=== PATIENT | female | born 1950 | race Caucasian/White ===

== ENCOUNTER 2016-09-04 18:54 | Observation (INO) | payer OTHER, BC ==
--- NOTE | 2016-09-04 19:10 | CPEKG ---
Heart Rate: 91 RR Interval: 659 P-R Interval: 164 QRSD Interval: 94 QT Interval: 372 QTC Interval: 458 P Sherwood: -3 QRS Sherwood: 2 T Wave Sherwood: 18 EKG Severity - NORMAL ECG - EKG Impression: SINUS RHYTHM Electronically Signed By: Salvador Stern 04-Sep-2016 19:27:01
[2016-09-04] MEDS ORDERED: ASPIRIN 81 MG CHEWABLE TAB PO ONE (19:17)
[2016-09-04 19:24] LABS: % IMMATURE GRANULYOCYTES 0.4 % (0.0-1.1); ABSOLUTE IMMATURE GRANULOCYTES 0.03 10^3/uL (0.00-0.10); ADD DIFF? NO; ADD MORPH? NO; ADD SCAN? NO; ATYPICAL LYMPHOCYTE FLAG 20 (0-99); FRAGMENT RBC FLAG 0 (0-99); HEMATOCRIT 41.4 % (38.0-47.0); HEMOGLOBIN 13.8 g/dL (12.6-16.3); LEFT SHIFT FLG 0 (0-99); LIPEMIA HEMOLYSIS FLAG 80 (0-99); MEAN CELL HEMOGLOBIN 30.7 pg (27.9-34.1); MEAN CELL HEMOGLOBIN CONCENTR. 33.3 g/dL (32.4-36.7); MEAN CELL VOLUME 92.2 fL (81.5-99.8); MEAN PLATELET VOLUME 9.2 fL (8.7-11.7); PLATELET CLUMPS FLAG 10 (0-99); PLATELET COUNT 202 10^3/uL (150-400); RED BLOOD CELL COUNT 4.49 10^6/uL (4.18-5.33); RED CELL DISTRIBUTION WIDTH 14.1 % (11.5-15.2)
--- NOTE | 2016-09-04 19:26 | EDPHY ---
H & P Time Seen by Provider: 09/04/16 19:02 HPI/ROS: CHIEF COMPLAINT: Chest pain HISTORY OF PRESENT ILLNESS: This 66-year-old woman flew out here from the [facility] to visit her daughter and family. Today at home around 6:30 p.m. she had sudden onset of chest pain associated with diaphoresis and dizziness and feeling lightheaded and her daughter who is a physician aquatics assistant department head noted her heart rate to be about 170 for 10 minutes. Her heart rate finally went back to normal but she continued to have central chest pain which finally went away after about 45 minutes. Did not radiate. Symptoms were moderate. REVIEW OF SYSTEMS: Eye: no change in vision ENT: no sore throat Cardiac: HPI Pulmonary: no cough or SOB Abdomen: no vomiting, diarrhea, abdominal pain Musculoskeletal: no back pain or leg swelling, chronic has right knee pain in a brace unchanged Skin: no rash Neuro: no headache Constitutional: no fever : no urinary symptoms A comprehensive 10 point review of systems is otherwise negative aside from elements mentioned in the history of present illness. PAST MEDICAL HISTORY: Osteoarthritis in the right knee, no diabetes or hypertension, normal cholesterol. Social history: Visiting from the [facility], nonsmoker General Appearance: Alert and conversant, cooperative. Eyes: No scleral icterus. ENT, Mouth: Normal mucous membranes. Respiratory: Normal respiratory effort, breath sounds equal, lungs are clear to auscultation. Cardiovascular: Regular rate and rhythm. Gastrointestinal: Abdomen is soft and non tender. Neurological: Alert and oriented x3. Normally conversant. Face symmetric, normal movement and sensation in all extremities. Skin: Warm and dry, no rashes. Musculoskeletal: Right leg in a brace but no calf tenderness either side Psychiatric: Not agitated. Emergency Department course/MDM: Oral aspirin, property assessment monitor, chest x-ray and troponin and D-dimer. 194: D-dimer negative, pretest probability for pulmonary embolism is low. 2015: Results discussed, no chest pain now, received oral aspirin, plan to admit for risk stratification and troponins. Smoking Status: Never smoked Constitutional: Initial Vital Signs Temperature (C) 36.7 C 09/04/16 18:58 Heart Rate 94 09/04/16 18:58 Respiratory Rate 18 09/04/16 18:58 Blood Pressure 172/102 H 09/04/16 18:58 O2 Sat (%) 96 09/04/16 18:58 O2 Delivery Mode Room Air Allergies/Adverse Reactions: No Known Allergies Allergy (Unverified 09/04/16 18:57) Home Medications: Medication Instructions Recorded Acebutolol HCl 09/04/16 Flexeril 09/04/16 Fosamax 09/04/16 Synthroid 09/04/16 Medical Decision Making - Diagnostics EKG Interpretation: 12-lead EKG interpreted by me; official reading is in trace master. My interpretation is sinus rhythm rate 91 no ischemic changes. Imaging Results: Imaging Impressions Chest X-Ray 09/04/16 19:17 Impression: No acute pulmonary disease. Imaging: I viewed and interpreted images myself Differential Diagnosis: Differential diagnosis considered for chest pain including but not limited to myocardial ischemia, aortic dissection, pericarditis, pulmonary embolus, chest wall pain, pleural inflammation and pulmonary infectious causes. Consult/Admit Bed Type: [facility] 2024 - Data Points Laboratory Results: Laboratory Results 09/04/16 19:15 09/04/16 19:15 09/04/16 09/04/16 09/04/16 19:15 19:15 19:15 WBC 7.50 10^3/uL 10^3/uL (3.80-9.50) RBC 4.49 10^6/uL 10^6/uL (4.18-5.33) Hgb 13.8 g/dL g/dL (12.6-16.3) Hct 41.4 % % (38.0-47.0) MCV 92.2 fL fL (81.5-99.8) MCH 30.7 pg pg (27.9-34.1) MCHC 33.3 g/dL g/dL (32.4-36.7) RDW 14.1 % % (11.5-15.2) Plt Count 202 10^3/uL 10^3/uL (150-400) MPV 9.2 fL fL (8.7-11.7) Neut % (Auto) 50.4 % % (39.3-74.2) Lymph % (Auto) 37.6 % % (15.0-45.0) [place] % (Auto) 9.7 % % (4.5-13.0) Eos % (Auto) 1.1 % % (0.6-7.6) Baso % (Auto) 0.8 % % (0.3-1.7) Nucleat RBC Rel Count 0.0 % % (0.0-0.2) Absolute Neuts (auto) 3.78 10^3/uL 10^3/uL (1.70-6.50) Absolute Lymphs (auto) 2.82 10^3/uL 10^3/uL (1.00-3.00) Absolute Monos (auto) 0.73 10^3/uL 10^3/uL (0.30-0.80) Absolute Eos (auto) 0.08 10^3/uL 10^3/uL (0.03-0.40) Absolute Basos (auto) 0.06 10^3/uL 10^3/uL (0.02-0.10) Absolute Nucleated RBC 0.00 10^3/uL 10^3/uL (0-0.01) Immature Gran % 0.4 % % (0.0-1.1) Immature Gran # 0.03 10^3/uL 10^3/uL (0.00-0.10) D-Dimer 0.28 ug/mLFEU ug/mLFEU (0.00-0.50) Sodium 141 mEq/L mEq/L (134-144) Potassium 4.0 mEq/L mEq/L (3.5-5.2) Chloride 105 mEq/L mEq/L (97-110) Carbon Dioxide 28 mEq/l mEq/l (22-31) Anion Gap 8 mEq/L mEq/L (8-16) BUN 16 mg/dL mg/dL (7-23) Creatinine 0.8 mg/dL mg/dL (0.6-1.0) Estimated GFR > 60 Glucose 103 mg/dL H mg/dL (70-100) Calcium 8.9 mg/dL mg/dL (8.5-10.4) Troponin I < 0.012 ng/mL ng/mL (0-0.034) Medications Given: Discontinued Medications Aspirin (Aspirin) 324 mg PO EDNOW ONE Stop: 09/04/16 19:18 Last Admin: 09/04/16 19:23 Dose: 324 mg Departure - Departure Disposition: [facility] Inpatient Acute Clinical Impression: Chest pain Qualifiers: Chest pain type: unspecified Qualified Code(s): R07.9 - Chest pain, unspecified Condition: Good Referrals: LUTHER NAJERA [Other] - As per Instructions
[2016-09-04 19:39] LABS: ANION GAP 8 mEq/L (8-16); CARBON DIOXIDE 28 mEq/l (22-31); CHLORIDE 105 mEq/L (97-110); CREATININE 0.8 mg/dL (0.6-1.0); GLOMERULAR FILTRATION RATE > 60; GLUCOSE 103 mg/dL (70-100); SODIUM 141 mEq/L (134-144)
[2016-09-04 19:51] LABS: TROPONIN I < 0.012 ng/mL (0-0.034)
[2016-09-04 19:57] LABS: CALCIUM 8.9 mg/dL (8.5-10.4)
[2016-09-04] MEDS ORDERED: ACETAMINOPHEN 325 MG TAB PO PRN (20:44)
[2016-09-04] MEDS ORDERED: ONDANSETRON 4 MG/2 ML VIAL IVP PRN (20:44)
[2016-09-04] MEDS ORDERED: ONDANSETRON DISINTEGRATING 4 MG TAB PO PRN (20:44)
--- NOTE | 2016-09-04 21:46 | PDGENHP ---
History and Physical - Chief Complaint Acute chest pain - History of Present Illness 66-year-old female presents with acute chest pain located in the substernal area with associated diaphoresis, dizziness and onset of 6:30 p.m. on the day of this presentation, occurring at rest. Duration was approximately 45-50 minutes. She reports that prior to her onset of symptoms, she had been physically exerting herself as she and her had been rushing from the airport to their daughter's house and then began engaging with the grandchildren. However while she was exerting herself from the airport to her shuttle, she did not experience these symptoms. She does endorse that 2 days prior to this presentation, she did feel which she characterized as "twinges" located in her left chest which intermittently occurred and were self resolved. Her pain on the day of this presentation was also self limited although she did receive full-dose aspirin in our emergency department. She otherwise reports she has been feeling well although she has been having progressive pain in her left hip limiting her overall physical exercise and exercise tolerance. She has attempted to do stretching exercises and does report that she had been doing some significant stretches during the days preceding this presentation. On the day of arrival, the patient had flown from [place] to [place] to visit her daughter and her grandchildren for the next 3 weeks. History Information - Allergies/Home Medication List Allergies/Adverse Reactions: No Known Allergies Allergy (Unverified 09/04/16 18:57) I have personally reviewed and updated: family history, medical history, social history, surgical history - Past Medical History Additional medical history: Symptomatic PVCs. Osteoarthritis - Surgical History Reports: no pertinent surgical hx - Family History Additional family history: mother with possible IN in her 70s - Social History Smoking Status: Never smoked Alcohol Use: Occasionally Drug Use: None Additional social history: normally independent in her ADLs Review of Systems ROS: 10pt was reviewed & negative except for what was stated in HPI & below Constitutional: Reports: diaphoresis Cardiac: Reports: chest pain, lightheadedness Physical Exam Temp Pulse Resp BP Pulse Ox 36.7 C 82 16 152/98 H 93 09/04/16 18:58 09/04/16 20:48 09/04/16 20:48 09/04/16 20:48 09/04/16 20:48 Constitutional: no apparent distress, appears nourished, not in pain Eyes: PERRL, anicteric sclera, EOMI Ears, Nose, Mouth, Throat: moist mucous membranes, hearing normal, ears appear normal, no oral mucosal ulcers Cardiovascular: regular rate and rhythym, no murmur, rub, or gallop, No edema Respiratory: no respiratory distress, no rales or rhonchi, clear to auscultation Gastrointestinal: normoactive bowel sounds, soft, non-tender abdomen, no palpable masses Genitourinary: no bladder fullness, no bladder tenderness Skin: other ( no vesicular lesions or rash over the left chest) Musculoskeletal: other ( tenderness to palpation in the left pectoralis muscle but she does have some mild tenderness and fibrous breast tissue on the left, also some tenderness in the sub a.c. on the left, full range of motion left shoulder without pain) Neurologic: AAOx3, No weakness Psychiatric: not encephalopathic, thought process linear, anxious, No agitated Lab Data & Imaging Review 09/04/16 19:15 09/04/16 19:15 WBC 7.50 10^3/uL (3.80-9.50) 09/04/16 19:15 RBC 4.49 10^6/uL (4.18-5.33) 09/04/16 19:15 Hgb 13.8 g/dL (12.6-16.3) 09/04/16 19:15 Hct 41.4 % (38.0-47.0) 09/04/16 19:15 MCV 92.2 fL (81.5-99.8) 09/04/16 19:15 MCH 30.7 pg (27.9-34.1) 09/04/16 19:15 MCHC 33.3 g/dL (32.4-36.7) 09/04/16 19:15 RDW 14.1 % (11.5-15.2) 09/04/16 19:15 Plt Count 202 10^3/uL (150-400) 09/04/16 19:15 MPV 9.2 fL (8.7-11.7) 09/04/16 19:15 Neut % (Auto) 50.4 % (39.3-74.2) 09/04/16 19:15 Lymph % (Auto) 37.6 % (15.0-45.0) 09/04/16 19:15 [place] % (Auto) 9.7 % (4.5-13.0) 09/04/16 19:15 Eos % (Auto) 1.1 % (0.6-7.6) 09/04/16 19:15 Baso % (Auto) 0.8 % (0.3-1.7) 09/04/16 19:15 Nucleat RBC Rel Count 0.0 % (0.0-0.2) 09/04/16 19:15 Absolute Neuts (auto) 3.78 10^3/uL (1.70-6.50) 09/04/16 19:15 Absolute Lymphs (auto) 2.82 10^3/uL (1.00-3.00) 09/04/16 19:15 Absolute Monos (auto) 0.73 10^3/uL (0.30-0.80) 09/04/16 19:15 Absolute Eos (auto) 0.08 10^3/uL (0.03-0.40) 09/04/16 19:15 Absolute Basos (auto) 0.06 10^3/uL (0.02-0.10) 09/04/16 19:15 Absolute Nucleated RBC 0.00 10^3/uL (0-0.01) 09/04/16 19:15 Immature Gran % 0.4 % (0.0-1.1) 09/04/16 19:15 Immature Gran # 0.03 10^3/uL (0.00-0.10) 09/04/16 19:15 D-Dimer 0.28 ug/mLFEU (0.00-0.50) 09/04/16 19:15 Sodium 141 mEq/L (134-144) 09/04/16 19:15 Potassium 4.0 mEq/L (3.5-5.2) 09/04/16 19:15 Chloride 105 mEq/L (97-110) 09/04/16 19:15 Carbon Dioxide 28 mEq/l (22-31) 09/04/16 19:15 Anion Gap 8 mEq/L (8-16) 09/04/16 19:15 BUN 16 mg/dL (7-23) 09/04/16 19:15 Creatinine 0.8 mg/dL (0.6-1.0) 09/04/16 19:15 Estimated GFR > 60 09/04/16 19:15 Glucose 103 mg/dL (70-100) H 09/04/16 19:15 Calcium 8.9 mg/dL (8.5-10.4) 09/04/16 19:15 Troponin I < 0.012 ng/mL (0-0.034) 09/04/16 19:15 Visualized and Interpreted Chest x-ray results: Yes Chest X-Ray results: no infiltrate Visualized and Interpreted EKG results: Yes EKG Interpretation: Positive for: other ( normal sinus rhythm) Assessment & Plan Assessment: 66-year-old female presenting with acute chest pain the setting of known chronic PVCs Plan: 1. Chest pain. Acute, new problem this provider, further workup indicated. Potential etiologies include obstructive coronary disease versus acute coronary syndrome versus tachyarrhythmia versus atypical causes. - I suspect the most likely causes a tachyarrhythmia given her description of the symptoms as well as her known history of PVCs and her daughters report that she was found to be tachycardic on exam during the episode, with an estimated heart rate around 170 - will monitor on telemetry overnight - will get Lexiscan stress test in a.m. given that she cannot run on a treadmill - will cycle cardiac enzymes - will empirically treat for possible obstructive coronary disease and acute coronary syndrome with metoprolol and full-dose aspirin - get hemoglobin A1c and lipid panel - get TSH to rule out under or over suppression - empirically give PPI for possible GERD - if patient is found to not have any cardiac or pulmonary causes of chest pain , would recommend that she follow up with [facility] this week for implantation of a loop recorder, Dr. lozada contact information has been provided in chart 2. Hypothyroidism. Check TSH as outlined above, continue Synthroid Diet. Regular, NPO in a.m. Prophylaxis. Moderate risk patient, Lovenox 40 Code. Full Disposition. Anticipated discharge is 09/05/2016, pending further workup and treatment as outlined above. I have discussed patient's presentation with Dr. Salvador Stern, we both agree the patient should be monitored in the PCU given her high likelihood of recurrent tachyarrhythmia which would require further rhythm evaluation and monitoring.
[2016-09-04] MEDS: METOPROLOL TARTRATE 25 MG TAB PO SCH (22:18)
[2016-09-04] MEDS ORDERED: CYCLOBENZAPRINE 10 MG TAB PO PRN (22:35)
[2016-09-04] MEDS ORDERED: METAXALONE 800 MG TAB PO PRN (22:35)
[2016-09-04] MEDS ORDERED: ACEBUTOLOL HCL 200 MG CAP PO SCH (23:15)
[2016-09-05 05:07] LABS: % IMMATURE GRANULYOCYTES 0.3 % (0.0-1.1); ABSOLUTE IMMATURE GRANULOCYTES 0.02 10^3/uL (0.00-0.10); ADD DIFF? NO; ADD MORPH? NO; ADD SCAN? NO; ATYPICAL LYMPHOCYTE FLAG 10 (0-99); FRAGMENT RBC FLAG 0 (0-99); HEMATOCRIT 40.2 % (38.0-47.0); HEMOGLOBIN 13.4 g/dL (12.6-16.3); LEFT SHIFT FLG 0 (0-99); LIPEMIA HEMOLYSIS FLAG 80 (0-99); MEAN CELL HEMOGLOBIN 30.7 pg (27.9-34.1); MEAN CELL HEMOGLOBIN CONCENTR. 33.3 g/dL (32.4-36.7); MEAN CELL VOLUME 92.2 fL (81.5-99.8); MEAN PLATELET VOLUME 9.5 fL (8.7-11.7); PLATELET CLUMPS FLAG 0 (0-99); PLATELET COUNT 190 10^3/uL (150-400); RED BLOOD CELL COUNT 4.36 10^6/uL (4.18-5.33)
[2016-09-05 05:20] LABS: ALANINE AMINOTRANSFERASE 38 IU/L (9-52); ALBUMIN 3.6 g/dL (3.5-5.0); ALKALINE PHOSPHATASE 47 IU/L (38-126); ANION GAP 6 mEq/L (8-16); ASPARTATE AMINOTRANSFERASE 29 IU/L (14-46); BILIRUBIN,TOTAL 0.7 mg/dL (0.1-1.4); CALCIUM 8.4 mg/dL (8.5-10.4); CARBON DIOXIDE 26 mEq/l (22-31); CHLORIDE 108 mEq/L (97-110); CHOLESTEROL 190 mg/dL (140-220); CHOLESTEROL/HDL RATIO 3.52 RATIO (1.00-4.44); CREATININE 0.6 mg/dL (0.6-1.0); GLOMERULAR FILTRATION RATE > 60; GLUCOSE 82 mg/dL (70-100); HIGH DENSITY LIPOPROTEIN 54 mg/dL (40-85); LOW DENSITY LIPOPROTEIN 119 mg/dL (80-100); MAGNESIUM 2.1 mg/dL (1.6-2.3); NON-HIGH DENSITY LIPOPROTEIN 136 mg/dL (90-129); POTASSIUM 4.1 mEq/L (3.5-5.2); SODIUM 140 mEq/L (134-144); TOTAL PROTEIN 6.1 g/dL (6.3-8.2); TRIGLYCERIDE 86 mg/dL (35-135); VERY LOW DENSITY LIPOPROTEINS 17 mg/dL (8-25)
[2016-09-05 05:30] LABS: TROPONIN I 0.022 ng/mL (0-0.034)
[2016-09-05] MEDS ORDERED: LEVOTHYROXINE 88 MCG TAB PO SCH (06:00)
[2016-09-05 07:29] VITALS: RESP 20; TEMP 98; O2SAT 94
[2016-09-05] MEDS ORDERED: ENOXAPARIN 40 MG/0.4 ML SYR SC SCH (09:00)
[2016-09-05] MEDS ORDERED: Herbals/Supplements -Info Only PO SCH (09:00)
[2016-09-05] MEDS ORDERED: PANTOPRAZOLE SODIUM 40 MG TAB PO SCH (09:00)
[2016-09-05] MEDS ORDERED: OMEGA-3 FATTY ACIDS 1,000 MG CAP PO SCH (09:00)
[2016-09-05] MEDS ORDERED: VIT E ACET PO SCH (09:00)
[2016-09-05] MEDS ORDERED: UBIDECARENONE PO SCH (09:00)
[2016-09-05] MEDS ORDERED: ASPIRIN EC 325 MG TAB PO SCH (09:00)
[2016-09-05] MEDS ORDERED: MULTIVITAMINS 1 EACH TAB PO SCH (09:00)
[2016-09-05] MEDS ORDERED: REGADENOSON 0.4 MG/5 ML SYR IVP ONE (11:02)
--- NOTE | 2016-09-05 11:23 | PDCARCONS ---
Cardiology Consult Reason for Consult: Chest pains with tachycardia Chief Complaint: Chest pain Requesting Physician: Hospitalist History of Present Illness: Patient is a 66 y/o female with unremarkable past medical/cardiovascular history (no CAD, HTN, HLP, or DM), who presented to [facility] ER after noting an episode of chest discomfort. Discomfort was a pain, and localized to the substernal region. Duration of symptoms was about 45 - 50 minutes. The severity of the discomfort was 10/10, but by the time the patient was seen in the ER, the pains had dropped. No radiation of the discomfort into the shoulder , neck, or jaw. Nausea and malaise was noted as well as diaphoresis. The patient also noted accelerated heart rates (~170 bpm). Mild dizziness was also noted. Two days prior to this event, the patient had studdering chest pains while driving the car (on an off for the day). No "fast heart rates" were noted that day. No PND or orthopnea has been noted. No fevers, chills, or emesis. No symptoms similar (tachycardia) have been noted for some time, but about three years ago, something similar to this was noted, and the patient had a cardiac work up (patient had "stress echo" and holter monitor). Patient's diary of studies without "stress testing" written, simply echo and holter. Patient's daughter is a PA for a family practice group in [place]. There had been talk about a zig zag stitcher rhythm assessment in the past, but given a lack of symptoms, these tests were not further pursued after the last bout three years ago (sounds like the patient might have had a discussion about a LINQ implant). The remainder of the 12 point review of symptoms (outside of that which was mentioned above) was negative History Information - Allergies/Home Medication List Allergies/Adverse Reactions: No Known Allergies Allergy (Unverified 09/04/16 18:57) Home Medications: Acebutolol HCl [Sectral 200 mg (*)] 200 mg PO HS 09/04/16 [Last Taken 09/03/16] Alendronate Sodium [Fosamax 70 MG (*)] 70 mg PO MO@0700 09/04/16 [Last Taken 12/09] Cyclobenzaprine [Flexeril 10 MG (*)] 10 mg PO BID PRN 09/04/16 [Last Taken Unknown] Herbals/Supplements -Info Only 1 ea PO DAILY 09/04/16 [Last Taken Unknown] Levothyroxine [Synthroid 88 mcg (*)] 44 mcg PO SUSA@0600 09/04/16 [Last Taken ] Levothyroxine [Synthroid 88 mcg (*)] 88 mcg PO MOTUWETHFR@0600 09/04/16 [Last Taken 09/03/16] Metaxalone [Skelaxin 800 mg (*)] 800 mg PO TID PRN 09/04/16 [Last Taken 09/04/16 ] Multivitamins [Multivitamin (*)] 1 each PO DAILY 09/04/16 [Last Taken 09/04/16] [place]-3 Fatty Acids/Fish Oil [[place] 3 1,000 mg Softgel] 1 each PO DAILY [Last Taken 09/04/16] Ubidecarenone/Vit E Acet [Co Q-10 100 mg Softgel] 1 each PO DAILY 09/04/16 [ Last Taken 09/04/16] I have personally reviewed and updated: family history, medical history, social history, surgical history - Past Medical History no pertinent PMH, arthritis - Surgical History Reports: no pertinent surgical hx - Family History Positive for: non-pertinent - Social History Smoking Status: Never smoked Alcohol Use: Occasionally Drug Use: None Cardiac History - Cardiac History Cardiac Risk Factors: age > 65 Timing/Duration: Minutes Severity: severe Severity Scale: 10 Location: substernal Activities at Onset: none Modifying Factors: improves with: rest Associated Symptoms: chest pain, diaphoresis, nausea/vomiting MAIA Risk Evaluation age greater or equal to 65: yes greater or equal to 3 CAD risk factors: no known CAD(stenosis greater or eqaul to 50%): no ASA use in past 7 days: no severe angina(greater or equal to 2 episodes in 24hrs): no EKG ST changes greater or equal to 0.5mm: no positive cardiac marker: no Total Score: 1 MAIA Score: 4.7% risk Physical Exam Temp Pulse Resp BP Pulse Ox 36.7 C 93 20 130/91 H 94 09/05/16 07:27 09/05/16 07:27 09/05/16 07:27 09/05/16 07:27 09/05/16 07:27 Constitutional: no apparent distress, appears nourished Eyes: PERRL Ears, Nose, Mouth, Throat: moist mucous membranes, hearing normal Cardiovascular: regular rate and rhythym, no murmur, rub, or gallop, pulses symmetric bilaterally, No JVD Peripheral Pulses: 2+: dorsalis-pedis (R), dorsalis-pedis (L) Respiratory: no respiratory distress, no rales or rhonchi, clear to auscultation Gastrointestinal: normoactive bowel sounds Skin: warm, normal color Musculoskeletal: full muscle strength, no muscle tenderness, normal joint ROM Neurologic: AAOx3, CN II-XII Intact Psychiatric: interacting appropriately, not anxious, not encephalopathic Lab and Imaging 09/05/16 04:18 09/05/16 04:18 WBC 6.40 10^3/uL (3.80-9.50) 09/05/16 04:18 RBC 4.36 10^6/uL (4.18-5.33) 09/05/16 04:18 Hgb 13.4 g/dL (12.6-16.3) 09/05/16 04:18 Hct 40.2 % (38.0-47.0) 09/05/16 04:18 MCV 92.2 fL (81.5-99.8) 09/05/16 04:18 MCH 30.7 pg (27.9-34.1) 09/05/16 04:18 MCHC 33.3 g/dL (32.4-36.7) 09/05/16 04:18 RDW 14.0 % (11.5-15.2) 09/05/16 04:18 Plt Count 190 10^3/uL (150-400) 09/05/16 04:18 MPV 9.5 fL (8.7-11.7) 09/05/16 04:18 Neut % (Auto) 44.9 % (39.3-74.2) 09/05/16 04:18 Lymph % (Auto) 42.7 % (15.0-45.0) 09/05/16 04:18 [place] % (Auto) 9.8 % (4.5-13.0) 09/05/16 04:18 Eos % (Auto) 1.4 % (0.6-7.6) 09/05/16 04:18 Baso % (Auto) 0.9 % (0.3-1.7) 09/05/16 04:18 Nucleat RBC Rel Count 0.0 % (0.0-0.2) 09/05/16 04:18 Absolute Neuts (auto) 2.87 10^3/uL (1.70-6.50) 09/05/16 04:18 Absolute Lymphs (auto) 2.73 10^3/uL (1.00-3.00) 09/05/16 04:18 Absolute Monos (auto) 0.63 10^3/uL (0.30-0.80) 09/05/16 04:18 Absolute Eos (auto) 0.09 10^3/uL (0.03-0.40) 09/05/16 04:18 Absolute Basos (auto) 0.06 10^3/uL (0.02-0.10) 09/05/16 04:18 Absolute Nucleated RBC 0.00 10^3/uL (0-0.01) 09/05/16 04:18 Immature Gran % 0.3 % (0.0-1.1) 09/05/16 04:18 Immature Gran # 0.02 10^3/uL (0.00-0.10) 09/05/16 04:18 D-Dimer 0.28 ug/mLFEU (0.00-0.50) 09/04/16 19:15 Sodium 140 mEq/L (134-144) 09/05/16 04:18 Potassium 4.1 mEq/L (3.5-5.2) 09/05/16 04:18 Chloride 108 mEq/L (97-110) 09/05/16 04:18 Carbon Dioxide 26 mEq/l (22-31) 09/05/16 04:18 Anion Gap 6 mEq/L (8-16) L 09/05/16 04:18 BUN 11 mg/dL (7-23) 09/05/16 04:18 Creatinine 0.6 mg/dL (0.6-1.0) 09/05/16 04:18 Estimated GFR > 60 09/05/16 04:18 Glucose 82 mg/dL (70-100) 09/05/16 04:18 Calcium 8.4 mg/dL (8.5-10.4) L 09/05/16 04:18 Magnesium 2.1 mg/dL (1.6-2.3) 09/05/16 04:18 Total Bilirubin 0.7 mg/dL (0.1-1.4) 09/05/16 04:18 AST 29 IU/L (14-46) 09/05/16 04:18 ALT 38 IU/L (9-52) 09/05/16 04:18 Alkaline Phosphatase 47 IU/L (38-126) 09/05/16 04:18 Troponin I 0.022 ng/mL (0-0.034) 09/05/16 04:18 Total Protein 6.1 g/dL (6.3-8.2) L 09/05/16 04:18 Albumin 3.6 g/dL (3.5-5.0) 09/05/16 04:18 Triglycerides 86 mg/dL (35-135) 09/05/16 04:18 Cholesterol 190 mg/dL (140-220) 09/05/16 04:18 Cholesterol Risk Factr 0.6 (0.2-1.0) 09/05/16 04:18 LDL Cholesterol, Calc 119 mg/dL (80-100) H 09/05/16 04:18 LDL Risk Factor 0.8 (0.2-1.0) 09/05/16 04:18 VLDL Cholesterol 17 mg/dL (8-25) 09/05/16 04:18 Non-HDL Cholesterol 136 mg/dL (90-129) H 09/05/16 04:18 HDL Cholesterol 54 mg/dL (40-85) 09/05/16 04:18 LDL/HDL Ratio 2.20 RATIO (1.00-3.22) 09/05/16 04:18 Cholesterol/HDL Ratio 3.52 RATIO (1.00-4.44) 09/05/16 04:18 TSH 3.130 uIU/mL (0.465-4.680) 09/05/16 04:18 Visualized and Interpreted Chest x-ray results: Yes Chest X-ray Interpretation: no infiltrate, normal Visualized and Interpreted EKG results: Yes EKG Interpretation: Positive for: normal sinsus rhythm Telemetry: normal sinus rhythm A/P Assessment: Patient is a 66 y/o female with unremarkable past cardiovascular history with complaints of "chest pains" yesterday for about one hour. No cardiac biomarker elevation was noted, and ECG was normal. Patient with further history of tachycardia (history of PVCs in the past). Episode of tachycardia lasted long enough for family (daughter is a FP PA) to obtain "regular with rates of >170 bpm". Discussion today about ETT versus other testing. Plan: We will perform ETT stress testing today (non nuclear with normal baseline ECG) to risk stratify the chest discomfort that was noted. Would arrange for patient to have LINQ monitor implanted this week. She can take this device home when she goes to have an extended monitoring device with the tachycardia that was noted. Further recommendations post ETT Patient and family were in agreement with these plans.
--- NOTE | 2016-09-05 12:09 | PDCARST ---
CAR Stress Test Results Type of Stress Test: Gera Protocol Stress testing Indication: Chest pains Description of Procedure: Consent was obtained, and patient was started on the ETT with heart rate, blood pressure, oxygen, and respiratory rates monitored. ECG was continuously monitored over course of study. Peak heart rate was 138 bpm (90% of max predicted for age). Impression: [place]cin[place] Treadmill Score was +7 (low CV risk) Conclusion: No critical CAD suspected based on the results of this ETT.
--- NOTE | 2016-09-05 12:46 | GDS ---
[f rep st] DISCHARGE SUMMARY DISCHARGE DIAGNOSES: 1. Chest pain, atypical. 2. Hypothyroidism. 3. History of tachycardia and premature ventricular contractions possibly contributing to her chest discomfort. CONSULTANTS: Dr. Tigre Reeves. HOSPITAL COURSE: Chest discomfort. The patient was placed on observation where we cycled her troponins that were negative. She had no noted arrhythmias. She had a treadmill stress test that was negative. She was seen by Dr. Reeves who is recommending that she return to the hospital for a LINQ monitor. On the day of discharge, the patient states she feels well and is agreeable to be discharged home. PHYSICAL EXAMINATION: VITAL SIGNS: On the day of discharge, blood pressure 138 /91, pulse 93, respiratory rate 20, O2 saturation 94% on room air, temperature afebrile. GENERAL: No acute distress. HEART: S1, S2. LUNGS: Clear. ABDOMEN: Soft. EXTREMITIES: No edema. TEST DATA: Pertinent lab studies done on this hospital stay. For treadmill stress test on 09/05/2016, refer to report. DISCHARGE MEDICATIONS: Please refer to discharge medication reconciliation in [facility] for details. Acebutolol was discontinued Metoprolol 12.5mg BID #60 DISCHARGE INSTRUCTIONS: The patient will be discharged from the hospital. She is instructed to seek medical attention if her symptoms return; otherwise, she should follow up with Dr. Reeves as scheduled to have a LINQ monitor placed to further evaluate for an underlying arrhythmia. /[id number]/MODL MTDD
[2016-09-05] MEDS: METOPROLOL TARTRATE 25 MG TAB PO SCH (12:52)
[2016-09-05 13:09] VITALS: BP 134/84; PULSE 96
[2016-09-06 01:01] LABS: HEMOGLOBIN A1C 5.8 % (4.0-6.0)
[2016-09-06] MEDS ORDERED: LEVOTHYROXINE 88 MCG TAB PO SCH (06:00)
[2016-09-06] MEDS ORDERED: ALENDRONATE SODIUM 70 MG TAB PO SCH (07:00)
[2016-09-06] MEDS ORDERED: UBIDECARENONE PO SCH (09:00)
[2016-09-06] MEDS ORDERED: VIT E ACET PO SCH (09:00)
== END 2016-09-05 13:32 | disposition home or self-care (01) ==
LOC: F2W 21:55
PROVIDERS: ADMIT Internal Medicine; ATTEND Family Medicine
DX: R07.9 Chest pain, unspecified (principal); R00.0 Tachycardia, unspecified; E03.9 Hypothyroidism, unspecified
CPT/HCPCS: 71020; 93005; 93017; G0378; J1650; J2785

== ENCOUNTER 2016-09-09 13:03 | Day surgery (SDC) | payer OTHER, BC ==
[2016-09-09] MEDS ORDERED: LIDOCAINE 1% 30 ML SDV ONE (13:50)
--- NOTE | 2016-09-09 15:21 | SUROPNOTE ---
[facility] Operative Report - Surgery PROCEDURE: LINQ implant INDICATION: Concerns about pAF given symptoms reported and infrequency of events DETAILS: After consent was obtained, the patient was draped in the usual sterile fashion. opted to stay in the room. Lidocaine (1%) was used to the left sternal region at the level of the 2nd and 3rd intercostal space. A #12 blade was used for the initial incision, followed by provided blade for appropriate width. The LINQ delivery rail was then used to place the LINQ without complication. ApeniMED REVEAL LINQ SN: [id number] Three mars were used to close the incision No complications were appreciated Patient wanting to have the monitoring with [facility]
== END 2016-09-09 16:14 | disposition home or self-care (01) ==
LOC: FCATH 13:03
PROVIDERS: ATTEND Internal Medicine Cardiovascular Disease
PROC: 0JH63PZ Insertion of Cardiac Rhythm Related Device into Chest Subcutaneous Tissue and Fascia, Percutaneous Approach (ICD-10-PCS; principal; 2016-09-09)
DX: R09.89 Other specified symptoms and signs involving the circulatory and respiratory systems (principal)
CPT/HCPCS: C1764

== ENCOUNTER → 2016-11-01 | Outpatient (CLI) | payer OTHER, BC | LOC: BHCLAF 10:00 | PROVIDERS: ATTEND Internal Medicine Cardiovascular Disease | DX: R07.9 Chest pain, unspecified (principal); R00.2 Palpitations; R06.00 Dyspnea, unspecified; I10 Essential (primary) hypertension ==

== ENCOUNTER 2018-04-21 00:28 | Emergency (ER) | payer OTHER, BC ==
[2018-04-21] MEDS ORDERED: ACETAMINOPHEN 500 MG TAB PO ONE (01:04)
--- NOTE | 2018-04-21 01:27 | EDPHY ---
H & P Stated Complaint: Dx w/flu toda, pressure/pain in abd/chest Time Seen by Provider: 04/21/18 00:48 HPI/ROS: Chief Complaint: Abdominal and chest pain, fever, cough HPI: 67-year-old woman is presenting with several days of nonproductive cough, general malaise, fevers to 104, body aches. She was seen by her primary care physician yesterday. She had a rapid flu test done which was negative but given her symptomatology she was started on Tamiflu. She took her last dose at 6:00 a.m. Yesterday evening. At that time she also took ibuprofen. She has been taking codeine with guaifenesin 5 as a cough suppressant with sleep. Pain is worse when she coughs. Does not hurt to take a deep breath. No diarrhea or constipation. No vomiting. No urinary symptoms. ROS: 10 systems were reviewed and were negative except those elements noted in the HPI. PMH: Hypothyroidism Social History: No smoking, no alcohol, no recreational drug use Family History: non-contributory Physical Exam: Gen: Awake, Alert, No Distress HEENT: Nose: no rhinorrhea Eyes: PERRLA, EOMI Mouth: Moist mucosa Neck: Supple, no JVD Chest: nontender, lungs clear to auscultation Heart: S1, S2 normal, no murmur Abd: Soft, non-tender, no guarding Back: no CVA tenderness, no midline tenderness Ext: no edema, non-tender Skin: no rash Neuro: CN II-XII intact, Sensation grossly intact, Strength 5/5 in bilateral upper and lower extremities - Personal History Current Tetanus Diphtheria and Acellular Pertussis (TDAP): Yes - Medical/Surgical History Hx Asthma: No Hx Chronic Respiratory Disease: No Hx Diabetes: No Hx Cardiac Disease: No Hx Renal Disease: No Hx Cirrhosis: No Hx Alcoholism: No Hx HIV/AIDS: No Hx Splenectomy or Spleen Trauma: No Other PMH: pvc, BURSITIS LEFT HIP, OSTEOARTHRITIS - Social History Smoking Status: Never smoked Constitutional: Initial Vital Signs Temperature (C) 36.9 C 04/21/18 00:31 Heart Rate 73 04/21/18 00:31 Respiratory Rate 18 04/21/18 00:31 Blood Pressure 109/67 04/21/18 00:31 O2 Sat (%) 94 04/21/18 00:31 O2 Delivery Mode Room Air Allergies/Adverse Reactions: No Known Allergies Allergy (Unverified 04/21/18 00:30) Home Medications: Medication Instructions Recorded Alendronate Sodium [Fosamax 70 MG 70 mg PO MO@0700 09/04/16 (*)] Cyclobenzaprine [Flexeril 10 MG 10 mg PO BID PRN 09/04/16 (*)] Herbals/Supplements -Info Only 1 ea PO DAILY 09/04/16 Levothyroxine [Synthroid 88 mcg 44 mcg PO SUSA@59909/04/16 (*)] Levothyroxine [Synthroid 88 mcg 88 mcg PO MOTUWETHFR@59909/04/16 (*)] Metaxalone [Skelaxin 800 mg (*)] 800 mg PO TID PRN 09/04/16 Metoprolol Tartrate [Lopressor 25 12.5 mg PO BID #60 tab 09/05/16 mg (*)] Hydrochlorothiazide 04/21/18 Medical Decision Making - Diagnostics EKG Interpretation: ECG time 12:47 a.m., sinus rhythm with a rate of 70, normal axis, normal intervals, no acute ST or T-wave changes. Impression: Normal ECG. Imaging Results: Chest x-ray is negative per my interpretation. Imaging: I viewed and interpreted images myself ED Course/Re-evaluation: 59-year-old woman with flu-like illness. Negative flu test was started on Tamiflu. She is presenting with pain in her upper chest and abdomen. She does have some pain with palpation of her chest wall on reexamination. Lungs are clear. Chest x-ray is negative. CBC is normal. She is hypokalemic. Remainder of her evaluations are unremarkable. Symptoms could also be secondary to her Tamiflu given a started after she took it. She is not consistently taking ibuprofen alternating with acetaminophen. Her pain is not pleuritic. She is not hypoxemic her tachycardic. She has no risk factors for PE or DVT. Plan will be to discharge with supportive treatment, follow up with primary care physician. - Data Points Laboratory Results: Laboratory Results 04/21/18 01:02 04/21/18 01:08 04/21/18 04/21/18 04/21/18 01:14 01:08 01:02 WBC 5.50 10^3/uL 10^3/uL (3.80-9.50) RBC 4.99 10^6/uL 10^6/uL (4.18-5.33) Hgb 12.9 g/dL g/dL (12.6-16.3) Hct 39.3 % % (38.0-47.0) MCV 78.8 fL L fL (81.5-99.8) MCH 25.9 pg L pg (27.9-34.1) MCHC 32.8 g/dL g/dL (32.4-36.7) RDW 15.4 % H % (11.5-15.2) Plt Count 172 10^3/uL 10^3/uL (150-400) MPV 9.7 fL fL (8.7-11.7) Neut % (Auto) 38.2 % L % (39.3-74.2) Lymph % (Auto) 44.7 % % (15.0-45.0) [place] % (Auto) 14.0 % H % (4.5-13.0) Eos % (Auto) 1.6 % % (0.6-7.6) Baso % (Auto) 1.1 % % (0.3-1.7) Nucleat RBC Rel Count 0.0 % % (0.0-0.2) Absolute Neuts (auto) 2.10 10^3/uL 10^3/uL (1.70-6.50) Absolute Lymphs (auto) 2.46 10^3/uL 10^3/uL (1.00-3.00) Absolute Monos (auto) 0.77 10^3/uL 10^3/uL (0.30-0.80) Absolute Eos (auto) 0.09 10^3/uL 10^3/uL (0.03-0.40) Absolute Basos (auto) 0.06 10^3/uL 10^3/uL (0.02-0.10) Absolute Nucleated RBC 0.00 10^3/uL 10^3/uL (0-0.01) Immature Gran % 0.4 % % (0.0-1.1) Immature Gran # 0.02 10^3/uL 10^3/uL (0.00-0.10) Sodium 135 mEq/L mEq/L (135-145) Potassium 3.1 mEq/L L mEq/L (3.5-5.2) Chloride 101 mEq/L mEq/L (97-110) Carbon Dioxide 24 mEq/l mEq/l (22-31) Anion Gap 10 mEq/L mEq/L (6-14) BUN 14 mg/dL mg/dL (7-23) Creatinine 0.7 mg/dL mg/dL (0.6-1.0) Estimated GFR > 60 Glucose 106 mg/dL H mg/dL (70-100) Calcium 8.3 mg/dL L mg/dL (8.5-10.4) Total Bilirubin 0.6 mg/dL mg/dL (0.1-1.4) Conjugated Bilirubin 0.3 mg/dL mg/dL (0.0-0.5) Unconjugated Bilirubin 0.3 mg/dL mg/dL (0.0-1.1) AST 68 IU/L H IU/L (14-46) ALT 59 IU/L H IU/L (9-52) Alkaline Phosphatase 83 IU/L IU/L (38-126) POC Troponin I 0.01 ng/mL ng/mL (0.00-0.08) Total Protein 6.5 g/dL g/dL (6.3-8.2) Albumin 3.8 g/dL g/dL (3.5-5.0) Lipase 168 IU/L IU/L (23-300) Medications Given: Discontinued Medications Acetaminophen (Tylenol) 1,000 mg PO EDNOW ONE Stop: 04/21/18 01:05 Last Admin: 04/21/18 01:17 Dose: 1,000 mg Point of Care Test Results: Chemistry 04/21/18 01:14 POC Troponin I 0.01 ng/mL ng/mL (0.00-0.08) Departure - Departure Disposition: Home, Routine, Self-Care Clinical Impression: Viral upper respiratory illness Condition: Good Instructions: Viral Syndrome (ED), Chest Wall Pain (ED) Additional Instructions: Alternate acetaminophen (1000 mg) with ibuprofen (400 mg) every 4 hours as needed for fevers, chills, aches or pain. Make sure to drink plenty of fluids. Pedialyte is the best fluid when you are sick. You may continue taking the tamiflu, however if you experience worsening pain after your next dose you might consider discontinuing. Follow up with primary care physician in 2-3 days for further evaluation. Referrals: Alesia Iyer MD [Primary Care Provider] - As per Instructions
[2018-04-21 01:29] LABS: PLATELET COUNT 172 10^3/uL (150-400)
--- NOTE | 2018-04-21 02:17 | CPEKG ---
Test Reason : OPEN Blood Pressure : / mmHG Vent. Rate : 070 BPM Atrial Rate : 070 BPM P-R Int : 145 ms QRS Dur : 096 ms QT Int : 431 ms P-R-T Axes : -07 044 016 degrees QTc Int : 466 ms Sinus rhythm Confirmed by Herbert Eastman ([id number]) on 04/21/2018 2:16:49 AM Referred By: Confirmed By:Herbert Eastman
[2018-04-21] MEDS ORDERED: ALBUTEROL INH PREPACK MDI TAKEHOME ONE (02:34)
[2018-04-21 02:46] VITALS: BP 105/61
== END 2018-04-21 02:44 | disposition home or self-care (01) ==
DX: B34.9 Viral infection, unspecified (principal); R10.9 Unspecified abdominal pain; R07.9 Chest pain, unspecified
CPT/HCPCS: 84484-PO

== ENCOUNTER → 2018-06-09 | Outpatient (CLI) | payer OTHER, BC | LOC: FIMAGING 13:12 | PROVIDERS: ATTEND Urology | DX: N13.30 Unspecified hydronephrosis (principal); K76.0 Fatty (change of) liver, not elsewhere classified; N28.1 Cyst of kidney, acquired ==

== ENCOUNTER → 2018-07-10 | Outpatient (CLI) | payer OTHER, BC ==
[~2018-07-10] MED LIST: FUROSEMIDE 40 MG/4 ML VIAL ONE
== END ==
LOC: FIMAGING 09:45
PROVIDERS: ATTEND Urology
DX: R10.9 Unspecified abdominal pain (principal); N13.30 Unspecified hydronephrosis
CPT/HCPCS: 78708; A9562; J1940

== ENCOUNTER → 2018-10-20 | Outpatient (CLI) | payer OTHER, BC | LOC: FIMAGING 10:39 ==